=== PATIENT | female | born 1980 | race Hispanic/Latino ===

== ENCOUNTER 2023-05-08 15:15 | Inpatient (IN) | payer OTHER ==
[2023-05-08 15:53] VITALS: BMI 27.9
[2023-05-08] MEDS ORDERED: hydrALAZINE 20 MG/ML VIAL ONE (16:29)
[2023-05-08] MEDS ORDERED: Magnesium Sulfate 20 gm/500 ml 20 GM/500 ML BAG ONE (16:30)
[2023-05-08] MEDS ORDERED: HYDROcodone/Acetaminophen 5/325 mg Tablet PO PRN (16:31)
[2023-05-08] MEDS ORDERED: Diphenoxylate HCl/Atropine Tablet PO PRN (16:31)
[2023-05-08] MEDS ORDERED: hydrALAZINE 20 MG/ML VIAL SLOW IVP PRN ×3 (16:31)
[2023-05-08] MEDS ORDERED: Misoprostol 200 MCG TAB PR PRN (16:31)
[2023-05-08] MEDS ORDERED: Tranexamic Acid 1,000 MG/10 ML VIAL IVP PRN (16:31)
[2023-05-08] MEDS ORDERED: Carboprost 250 MCG/ML AMP IM PRN (16:31)
[2023-05-08] MEDS ORDERED: Labetalol HCl 100 MG/20 ML VIAL SLOW IVP PRN ×2 (16:31)
[2023-05-08] MEDS ORDERED: Acetaminophen 500 MG TAB PO PRN (16:31)
[2023-05-08] MEDS ORDERED: Lorazepam 2 MG/ML VIAL SLOW IVP PRN (16:31)
[2023-05-08] MEDS ORDERED: Calcium Gluc 4.6 MEQ/10 ML (100 MG/ML) SLOW IVP PRN (16:31)
[2023-05-08] MEDS ORDERED: Promethazine HCl 25 MG/ML VIAL IM PRN (16:31)
[2023-05-08] MEDS ORDERED: fentaNYL 50 mcg/mL 1 mL Vial SLOW IVP PRN (16:31)
[2023-05-08] MEDS ORDERED: Ibuprofen 800 MG TAB PO PRN (16:31)
[2023-05-08] MEDS ORDERED: Lidocaine 1% (PF) 30 ML VIAL SC PRN (16:31)
[2023-05-08] MEDS ORDERED: Oxytocin 30 units/NS 500 ML 500 ML IV SCH ×3 (16:45)
[2023-05-08] MEDS: Labetalol HCl 100 MG TAB PO SCH ×2 (17:05→23:51)
[2023-05-08] MEDS: Ondansetron PF 4 MG/2 ML Vial IVP PRN (17:09)
[2023-05-08 17:12] LABS: Hematocrit 37.9 % (34.9-44.5); Hemoglobin 13.1 g/dL (12.0-15.5); Mean Corpuscular HGB CONC 34.6 g/dL (32.0-36.0); Mean Corpuscular Hemoglobin 31.3 pg (27.0-33.0); Mean Corpuscular Volume 90.5 fl (81.6-98.3); Mean Platelet Volume 11.5 fl (7.4-10.4); Platelet Count 292 10x3/uL (150-450); RBC Distribution Width 13.9 % (11.5-14.5); Red Blood Cell (RBC) Count 4.19 10x6/uL (3.90-5.03); White Blood Cell (WBC) Count 15.5 10x3/uL (3.5-10.5)
[2023-05-08] MEDS: Misoprostol 100 MCG TAB VAG SCH ×2 (17:24→22:34)
[2023-05-08 17:51] LABS: ALT (SGPT) 12 U/L (8-55); AST (SGOT) 17 U/L (5-34); Albumin 3.4 g/dL (3.5-5.0); Alkaline Phosphatase 172 U/L (40-110); Anion Gap 16 mmol/L (10-20); BUN (Urea Nitrogen) 8 mg/dL (7.0-18.7); Bilirubin, Total 0.4 mg/dL (0.2-1.2); Calc. Creatinine Clearance 173 mL/min (70-130); Calcium 8.6 mg/dL (7.8-10.44); Carbon Dioxide 20 mmol/L (22-29); Chloride 105 mmol/L (98-107); Estimated GFR 115; Globulin 3.1 g/dL (2.4-3.5); Glucose 80 mg/dL (70-105); Potassium 3.8 mmol/L (3.5-5.1); Protein, Total 6.5 g/dL (6.0-8.3); Sodium 137 mmol/L (136-145)
[2023-05-08 18:00] LABS: Syphilis Antibody Nonreactive (Nonreactive); Syphilis Antibody Index 0.05 S/CO (<1.00 Non-Reactive)
[2023-05-08 18:01] LABS: HBSAg Index 0.17 S/CO (0-0.99); Hep B Surf Ag - L&D Non-Reactive S/CO (NonReactive)
[2023-05-08] MEDS ORDERED: Calcium Carbonate 500 MG ChewTAB PO PRN (21:19)
[2023-05-08] MEDS: Lactated Ringer's 1,000 ML IV SCH (21:53)
[2023-05-08] MEDS ORDERED: fentaNYL/Ropivacaine Epidural 100 ML ONE (23:30)
[2023-05-09] MEDS: Magnesium Sulfate 20 gm/500 ml 20 GM/500 ML BAG IVPB SCH ×3 (00:04→18:46)
[2023-05-09] MEDS: Ondansetron PF 4 MG/2 ML Vial IVP PRN (00:05)
[2023-05-09] MEDS ORDERED: hydrALAZINE 20 MG/ML VIAL SLOW IVP PRN ×4 (02:00→09:14)
[2023-05-09] MEDS ORDERED: Lorazepam 2 MG/ML VIAL SLOW IVP PRN ×2 (02:00→09:14)
[2023-05-09] MEDS ORDERED: Calcium Gluc 4.6 MEQ/10 ML (100 MG/ML) SLOW IVP PRN ×2 (02:00→09:14)
[2023-05-09] MEDS ORDERED: Labetalol HCl 100 MG/20 ML VIAL SLOW IVP PRN ×3 (02:00→09:14)
[2023-05-09] MEDS: Lactated Ringer's 1,000 ML IV SCH ×2 (09:11→09:12)
[2023-05-09] MEDS: Misoprostol 100 MCG TAB VAG SCH (09:13)
[2023-05-09] MEDS ORDERED: Bisacodyl 10 MG SUPP PR PRN (09:14)
[2023-05-09] MEDS ORDERED: Lanolin Ointment 7 GM TUBE TOP PRN (09:14)
[2023-05-09] MEDS ORDERED: Milk Of Magnesia 30 ML UDCUP PO PRN (09:14)
[2023-05-09] MEDS ORDERED: Benzocaine-Menthol 82.5 ML CAN TOP PRN (09:14)
[2023-05-09] MEDS ORDERED: HYDROcodone/Acetaminophen 5/325 mg Tablet PO PRN (09:14)
[2023-05-09] MEDS ORDERED: diphenhydrAMINE 25 MG CAP PO PRN (09:14)
[2023-05-09] MEDS ORDERED: Boostrix 0.5 ML (Tdap) VIAL (>/=7 yrs of age) IM ONE (09:14)
[2023-05-09] MEDS ORDERED: Ondansetron PF 4 MG/2 ML Vial IVP PRN (09:14)
[2023-05-09] MEDS: Labetalol HCl 100 MG TAB PO SCH (09:32)
[2023-05-09] MEDS: Labetalol HCl 200 MG TAB PO SCH ×3 (12:08→18:19)
[2023-05-09] MEDS: Ibuprofen 800 MG TAB PO SCH ×2 (12:11→20:19)
[2023-05-09] MEDS ORDERED: Carboprost 250 MCG/ML AMP ONE ×3 (12:48→13:30)
[2023-05-09] MEDS ORDERED: Oxytocin 30 units/NS 500 ML 500 ML ONE (12:50)
[2023-05-09] MEDS: Misoprostol 200 MCG TAB ONE ×2 (12:56→17:09)
[2023-05-09] MEDS ORDERED: Tranexamic Acid 1,000 MG/10 ML VIAL ONE ×2 (12:57→13:10)
[2023-05-09] MEDS ORDERED: Bupivacaine 0.25% HCL 30 ML VIAL ONE (13:00)
[2023-05-09] MEDS ORDERED: fentaNYL 50 mcg/mL 1 mL Vial ONE (13:05)
[2023-05-09] MEDS ORDERED: Midazolam HCl 2 mg/2 ml Vial ONE (13:05)
[2023-05-09] MEDS ORDERED: PROPOFOL 0 ML ONE (13:05)
[2023-05-09] MEDS ORDERED: Lidocaine 1% PF 5 ML VIAL ONE (13:06)
[2023-05-09] MEDS ORDERED: PROPOFOL 20 ML ONE (13:06)
[2023-05-09] MEDS ORDERED: Promethazine HCl 25 MG/ML VIAL ONE (13:11)
[2023-05-09] MEDS ORDERED: Sterile Water 10 ML ONE (13:12)
[2023-05-09] MEDS ORDERED: CEFAZOLIN 2 GM VIAL ONE (13:12)
[2023-05-09] MEDS ORDERED: Diphenoxylate HCl/Atropine Tablet PO SCH (13:45)
[2023-05-09] MEDS ORDERED: Diphenoxylate HCl/Atropine Tablet PO PRN (13:46)
[2023-05-09] MEDS ORDERED: Ondansetron HCl/PF 4 MG/2 ML Vial IVP PRN (14:03)
[2023-05-09] MEDS ORDERED: Promethazine HCl 25 MG/ML VIAL IM PRN (14:03)
[2023-05-09] MEDS ORDERED: fentaNYL 50 mcg/mL 1 mL Vial SLOW IVP PRN (14:06)
[2023-05-09] MEDS: Prenatal Vitamin 1 TAB PO SCH (16:36)
[2023-05-09] MEDS ORDERED: Misoprostol 200 MCG TAB PR SCH (17:15)
[2023-05-09] MEDS ORDERED: Carboprost 250 MCG/ML AMP IM SCH (17:15)
[2023-05-09] MEDS ORDERED: Azithromycin 500 MG in Sodium Chloride 0.9% 250 ML 250 ML IVPB SCH (17:15)
[2023-05-09] MEDS ORDERED: Famotidine/PF 20 mg/2ml Vial SLOW IVP SCH (17:45)
[2023-05-09 19:49] LABS: Hematocrit 28.5 % (34.9-44.5); Hemoglobin 9.7 g/dL (12.0-15.5); Mean Corpuscular Hemoglobin 30.3 pg (27.0-33.0); Mean Corpuscular Volume 89.1 fl (81.6-98.3); Mean Platelet Volume 11.3 fl (7.4-10.4); Platelet Count 239 10x3/uL (150-450); RBC Distribution Width 13.9 % (11.5-14.5); White Blood Cell (WBC) Count 30.4 10x3/uL (3.5-10.5)
[2023-05-09 19:54] LABS: D-Dimer Test 3.77 mg/L FEU (0.19-0.50); INR-International Normal Ratio 0.9; PTT 28.4 sec (22.0-33.0); Prothrombin Time 10.1 sec (9.5-12.1)
[2023-05-09] MEDS: Docusate 100 MG CAP PO SCH (21:30)
[2023-05-10] MEDS: Magnesium Sulfate 20 gm/500 ml 20 GM/500 ML BAG IVPB SCH (04:05)
[2023-05-10 05:03] LABS: ALT (SGPT) 9 U/L (8-55); AST (SGOT) 15 U/L (5-34); Albumin 2.5 g/dL (3.5-5.0); Alkaline Phosphatase 119 U/L (40-110); Anion Gap 13 mmol/L (10-20); BUN (Urea Nitrogen) 5 mg/dL (7.0-18.7); Bilirubin, Total 0.3 mg/dL (0.2-1.2); Calc. Creatinine Clearance 168 mL/min (70-130); Calcium 5.9 mg/dL (7.8-10.44); Carbon Dioxide 20 mmol/L (22-29); Chloride 103 mmol/L (98-107); Estimated GFR 114; Globulin 2.4 g/dL (2.4-3.5); Glucose 117 mg/dL (70-105); Magnesium 7.4 mg/dL (1.6-2.6); Potassium 3.6 mmol/L (3.5-5.1); Protein, Total 4.9 g/dL (6.0-8.3); Sodium 132 mmol/L (136-145)
[2023-05-10] MEDS: Ibuprofen 800 MG TAB PO SCH ×3 (05:44→21:43)
[2023-05-10 08:16] LABS: Hematocrit 28.1 % (34.9-44.5); Hemoglobin 9.5 g/dL (12.0-15.5); Mean Corpuscular HGB CONC 33.8 g/dL (32.0-36.0); Mean Corpuscular Hemoglobin 30.4 pg (27.0-33.0); Mean Corpuscular Volume 90.1 fl (81.6-98.3); Mean Platelet Volume 10.5 fl (7.4-10.4); Platelet Count 285 10x3/uL (150-450); RBC Distribution Width 14.5 % (11.5-14.5); Red Blood Cell (RBC) Count 3.12 10x6/uL (3.90-5.03); White Blood Cell (WBC) Count 29.7 10x3/uL (3.5-10.5)
[2023-05-10] MEDS: Labetalol HCl 200 MG TAB PO SCH ×2 (08:50→09:02)
[2023-05-10] MEDS: Docusate 100 MG CAP PO SCH ×3 (08:50→21:43)
[2023-05-10] MEDS: Ferrous Sulfate 325 MG TAB PO SCH ×4 (08:50→17:25)
[2023-05-10] MEDS: Prenatal Vitamin 1 TAB PO SCH (08:50)
[2023-05-10] MEDS: Labetalol HCl 100 MG TAB PO SCH (16:51)
[2023-05-10] MEDS: QUEtiapine 100 MG TAB PO SCH (21:43)
[2023-05-11] MEDS: Labetalol HCl 100 MG TAB PO SCH ×3 (00:29→17:20)
[2023-05-11] MEDS: Ibuprofen 800 MG TAB PO SCH ×3 (05:14→21:44)
[2023-05-11] MEDS: Prenatal Vitamin 1 TAB PO SCH (09:58)
[2023-05-11] MEDS: Ferrous Sulfate 325 MG TAB PO SCH ×2 (09:58→17:20)
[2023-05-11] MEDS: Docusate 100 MG CAP PO SCH ×2 (09:58→21:44)
[2023-05-11] MEDS: QUEtiapine 100 MG TAB PO SCH (21:44)
[2023-05-12] MEDS: Labetalol HCl 100 MG TAB PO SCH ×2 (01:05→09:55)
[2023-05-12] MEDS: Ibuprofen 800 MG TAB PO SCH ×2 (05:04→13:41)
[2023-05-12] MEDS: Docusate 100 MG CAP PO SCH (09:55)
[2023-05-12] MEDS: Ferrous Sulfate 325 MG TAB PO SCH (09:55)
[2023-05-12] MEDS: Prenatal Vitamin 1 TAB PO SCH (09:56)
[2023-05-12 11:33] VITALS: BP 140/78; TEMP 98.5
== END 2023-05-12 16:43 | disposition home or self-care (01) | DRG 807 ==
LOC: CSHLD/OP 15:15 → CSHLD 15:21 → CSHPP 05-10 07:33
PROVIDERS: ADMIT Family Medicine; ATTEND Family Medicine
PROC: 3E0P7VZ Introduction of Hormone into Female Reproductive, Via Natural or Artificial Opening (ICD-10-PCS; 2023-05-08)
PROC: 10E0XZZ Delivery of Products of Conception, External Approach (ICD-10-PCS; principal; 2023-05-09)
PROC: 0UQGXZZ Repair Vagina, External Approach (ICD-10-PCS; 2023-05-09)
DX: O14.14 Severe pre-eclampsia complicating childbirth (principal); Z37.0 Single live birth; O71.4 Obstetric high vaginal laceration alone; Z3A.36 36 weeks gestation of pregnancy; O72.1 Other immediate postpartum hemorrhage
CPT/HCPCS: 36415; 51702; 80053; 83735; 85027; 85049; 85300; 85362; 85379; 85384; 85610; 85730; 86780; 86850; 86900; 86901; 87340; 99285; J0360; J0456; J2250; J2405; J2550; J2590; J2704; J3010; J3475; J3490; J7050; J7120; S0020; S0028